=== PATIENT | female | born 1975 | race African-American/Black ===

== ENCOUNTER 2017-05-09 17:03 | Emergency (ER) | payer SELFPAY ==
[~2017-05-09] VITALS: Ht 165.1 cm; Wt 57.6 kg
[2017-05-09 19:17] LABS: APPEARANCE,URINE SLIGHTLY CLOUDY; BILIRUBIN, URINE NEGATIVE (NEGATIVE); COLOR,URINE PALE YELLOW; GLUCOSE, URINE (UA) NEGATIVE (NEGATIVE); KETONES,URINE NEGATIVE (NEGATIVE); LEUKOCYTE ESTERASE ,URINE NEGATIVE (NEGATIVE); NITRITE,URINE NEGATIVE (NEGATIVE); PH,URINE 5 (4.5-8.0); PROTEIN,URINE 1+ (NEGATIVE); UROBILINOGEN,URINE NORMAL MG/DL (0.0-1.0)
--- NOTE | 2017-05-09 19:42 | Emergency Room Report ---
History of Present Illness General Chief Complaint: Flu Like Symptoms Source: Patient Present Illness HPI 41-year-old female presents to the emergency department complaining of subjective fevers, chills, body-aches, cough and headache times one day. Patient denies neck pain, stiffness or photophobia she denies nausea, vomiting, abdominal pain or rashes. Patient did not have flu vaccination this year. Patient is traveling from [place]. Reports increased urinary frequency denies dysuria or hematuria. Allergies: Coded Allergies: ASPIRIN (Verified Allergy, Unknown, hypotension, 05/09/17) Patient History Past Medical History: see triage record Past Surgical History: none Pertinent Family History: none Last Menstrual Period: - Now: No Reviewed Nursing Documentation: PMH: Agreed, PSxH: Agreed Nursing Documentation-PMH Past Medical History: No History, Except For History Of Psychiatric Problem: Yes - depression Review of Systems All Other Systems: negative except mentioned in HPI Physical Exam Vital Signs Date Time Temp Pulse Resp B/P (MAP) Pulse Ox O2 Delivery O2 Flow Rate FiO2 05/09/17 17:06 100.6 107 20 121/80 98 Room Air Sp02 EP Interpretation: reviewed, normal General Appearance: alert, GCS 15, non-toxic, mild distress Head: normocephalic, atraumatic Eyes: bilateral eye normal inspection, bilateral eye PERRL ENT: hearing grossly normal, normal voice, nasal congestion Neck: full range of motion, no meningismus, no bony tend Respiratory: chest non-tender, lungs clear, normal breath sounds, no respiratory distress, no wheezing, speaking full sentences Cardiovascular #1: regular rate, rhythm, normal capillary refill Gastrointestinal: normal bowel sounds, non tender, soft Rectal: deferred Genitourinary: normal inspection, no CVA tenderness Musculoskeletal: back normal, gait/station normal, normal range of motion, non- tender Neurologic: alert, oriented x3, responsive, motor strength/tone normal, sensory intact, speech normal Skin: normal color, no rash, warm/dry, well hydrated Lymphatic: no adenopathy Medical Decision Making PA Attestation Dr. Palacios is my supervising Physician whom patient management has been discussed with. Diagnostic Impression: Primary Impression: Acute viral syndrome Additional Impression: Influenza-like symptoms ER Course 41-year-old female presents to the emergency department complaining of fevers, chills, bodyaches, cough and headache times one day. Patient denies neck pain, stiffness or photophobia she denies nausea, vomiting, abdominal pain or rashes. Patient did not have vaccination this year. Patient is traveling from [place]. Reports increased urinary frequency denies dysuria or hematuria. Ddx considered but are not limited to URI, pneumonia, PE, strep pharyngitis, meningitis., influenza, UTI just to name a few. Vital signs: Pt. is afebrile, the remaining VS are WNL H&PE are most consistent with URI- no meningeal signs, oropharynx is not involved, no evidence of bacterial infection at this time. ORDERS: -UA: unremarkable ED INTERVENTIONS: -Tylenol PO --PT. EDUCATION: Discussed antibiotic resistance with inappropriate prescribing of antibiotics for viral illnesses. Discussed signs and symptoms to indicate viral illness versus bacterial illness. DISCHARGE: At this time pt. is stable for d/c to home. Will provide printed patient care instructions, and any necessary prescriptions. Care plan and follow up instructions have been discussed with the patient prior to discharge. Labs Test 05/09/17 18:45 Urine Color Pale yellow Urine Appearance Slightly cloudy Urine pH 5 (4.5-8.0) Urine Specific [place] 1.015 (1.005-1.035) Urine Protein 1+ (NEGATIVE) Urine Glucose (UA) Negative (NEGATIVE) Urine Ketones Negative (NEGATIVE) Urine Occult Blood Negative (NEGATIVE) Urine Nitrite Negative (NEGATIVE) Urine Bilirubin Negative (NEGATIVE) Urine Urobilinogen Normal MG/DL (0.0-1.0) Urine Leukocyte Esterase Negative (NEGATIVE) Urine RBC 0-2 /HPF (0 - 2) Urine WBC 0-2 /HPF (0 - 2) Urine Squamous Epithelial Cells Many /LPF (NONE/OCC) Urine Bacteria Few /HPF (NONE) Last Vital Signs Date Time Temp Pulse Resp B/P (MAP) Pulse Ox O2 Delivery O2 Flow Rate FiO2 05/09/17 18:56 100.5 05/09/17 17:16 107 20 Room Air 05/09/17 17:06 121/80 98 Disposition: HOME, SELF-CARE Condition: Stable Scripts Codeine/Promethazine Hcl* (PROMETHAZINE-CODEINE SYRUP*) 118 Ml Syrup 5 ML ORAL Q6H Y for For Cough, #120 ML 0 Refills Prov: Rosmery Brito 05/09/17 Acetaminophen* (TYLENOL EXTRA STRENGTH*) 500 Mg Tablet 500 MG ORAL Q6H Y for Mild Pain/Temp > 100.5, #20 TAB 0 Refills Prov: Rosmery Brito 05/09/17 Oseltamivir Phosphate (OSELTAMIVIR PHOSPHATE) 75 Mg Capsule 75 MG PO BID for 5 Days, #10 CAP Prov: Rosmery Brito 05/09/17 Patient Instructions: INFLUENZA (Adult), Medication: Tamiflu (Oseltamivir) Additional Instructions: Take medications as directed. Follow up with a Primary Care Provider in 3-5 days, even if your symptoms have resolved. --Please review list of primary care clinics, if you do not already have a primary care provider Return sooner to ED if new symptoms occur, or current symptoms become worse. Do not drink alcohol, drive, or operate heavy machinery while taking Cough syrup as this may cause drowsiness. - Please note that this Emergency Department Report was dictated using [employer] dipper technology software, occasionally this can lead to erroneous entry secondary to interpretation by the dictation equipment. Rosmery Brito May 09, 2017 19:42
[2017-05-09] MEDS ORDERED: OSELTAMIVIR PHO75 MG PO (19:43)
[2017-05-09] MEDS ORDERED: PROMETHAZINE-C118 M1 ORAL (19:43)
[2017-05-09] MEDS ORDERED: TYLENOL EXTRA500 MG ORAL (19:43)
[2017-05-09 19:56] VITALS: BP 114/77
[2017-05-09 19:58] VITALS: BP 114/77
== END 2017-05-09 19:58 | disposition home or self-care (01) ==
LOC: EMR 18:05
DX: B34.9 Viral infection, unspecified (principal); J11.1 Influenza due to unidentified influenza virus with other respiratory manifestations
CPT/HCPCS: 81003; 99284